=== PATIENT | female | born 1975 | race Caucasian/White ===

== ENCOUNTER 2016-12-01 10:06 | Emergency (ER) | payer MEDICAID ==
[~2016-12-01] VITALS: Ht 157.5 cm; Wt 87.8 kg
[2016-12-01] MEDS ORDERED: CARB-139 PO (10:53)
[2016-12-01] MEDS ORDERED: LAMO25TB PO (10:53)
[2016-12-01] MEDS ORDERED: DIVA250T PO (10:53)
[2016-12-01 11:45] LABS: BLOOD UREA NITROGEN 10 mg/dL (7-18)
[2016-12-01 11:49] LABS: IS PT STATUS REG ER OR PRE ER? YES
[2016-12-01] MEDS ORDERED: MECLIZINE CHEWABLE 25 MG TAB PO ONE (15:00)
[2016-12-01] MEDS ORDERED: OMNIPAQUE 350 MG/ML, 100ML BOTTLE ONE (17:55)
== END 2016-12-01 15:14 | disposition home or self-care (01) ==
LOC: ED 12:04 → MERGE 12:04 → ED 15:14
DX: H81.399 Other peripheral vertigo, unspecified ear (principal)
CPT/HCPCS: 36415; 70496; 70498; 70551; 80048; 82040; 84484; 85025; 93005; 99285; Q9967